=== PATIENT | female | born 1975 | race Caucasian/White ===

== ENCOUNTER 2019-10-31 07:03 | Day surgery (SDC) | payer OTHER ==
[~2019-10-31 07:03] MED LIST: SYNTHROID137 MCG PO
== END 2019-10-31 17:25 | disposition home or self-care (01) ==
LOC: CIR.AMB 07:03
PROVIDERS: ATTEND Colon & Rectal Surgery
DX: K60.5 Anorectal fistula (principal)

== ENCOUNTER 2020-03-26 05:30 | Day surgery (SDC) | payer OTHER | END 2020-03-26 15:10 | disposition home or self-care (01) | LOC: CIR.AMB 05:30 | PROVIDERS: ATTEND Colon & Rectal Surgery | DX: K60.5 Anorectal fistula (principal); Z20.828 Contact with and (suspected) exposure to other viral communicable diseases ==